=== PATIENT | male | born 1950 | race Caucasian/White ===

== ENCOUNTER → 2017-09-12 | Outpatient (CLI) | payer MEDICARE, OTHER ==
[~2017-09-12] MED LIST: BUPIVACAINE MPF 0.25% 10 ML VIAL. ONE; DEXAMETHASONE SOD PHOS 4 MG/ML VIAL ONE; IOHEXOL 300 MG/ML 50 ML VIAL. ONE; LIDOCAINE 1% PF 30 ML VIAL. ONE
== END | disposition home or self-care (01) ==
LOC: SURG 12:08
PROVIDERS: ATTEND Anesthesiology
DX: M54.16 Radiculopathy, lumbar region (principal); M19.91 Primary osteoarthritis, unspecified site; N42.9 Disorder of prostate, unspecified; Z72.89 Other problems related to lifestyle; Z85.46 Personal history of malignant neoplasm of prostate; Z88.8 Allergy status to other drugs, medicaments and biological substances
CPT/HCPCS: 64483; J1100; J2001; J3490; Q9967; 64484

== ENCOUNTER → 2020-07-16 | Outpatient (CLI) | payer MEDICARE, OTHER ==
--- NOTE | 2020-07-16 17:25 | RAD ---
CHEST PA LATERAL History: Shortness of air Comparison: None. Findings: 2 views of the chest are submitted. There is no infiltrate, pneumothorax, or effusion. Pericardial cardiac silhouette is within normal limits in size. There is somewhat tortuous thoracic aorta. Impression: 1. No significant infiltrate is identified by radiographs. Electronically signed by: Olayinka Cavazos MD (07/16/2020 5:23 PM) [id number]
== END | disposition home or self-care (01) ==
LOC: DXRAD 16:33
PROVIDERS: ATTEND Physician Assistant
DX: R06.02 Shortness of breath (principal); Q25.46 Tortuous aortic arch
CPT/HCPCS: 71046

== ENCOUNTER → 2020-07-21 | Outpatient (CLI) | payer MEDICARE, OTHER ==
[~2020-07-21] MED LIST changes: -BUPIVACAINE MPF 0.25% 10 ML VIAL. ONE; -DEXAMETHASONE SOD PHOS 4 MG/ML VIAL ONE; -IOHEXOL 300 MG/ML 50 ML VIAL. ONE; +IOHEXOL 350 MG/ML 100 ML VIAL. IV ONE; -LIDOCAINE 1% PF 30 ML VIAL. ONE
--- NOTE | 2020-07-21 14:12 | RAD ---
Examination: CT angiography chest HISTORY: History of shortness of breath COMPARISON: None available TECHNIQUE: Axial CT angiographic images were performed with IV contrast. Coronal and sagittal 3-D reformats are performed Exposure: One or more of the following individualized dose reduction techniques were utilized for this examination: 1. Automated exposure control 2. Adjustment of the mA and/or kV according to patient size 3. Use of iterative reconstruction technique FINDINGS: The central airways are patent. Coronary artery calcifications identified. The caliber of the aorta grossly appears unremarkable. There is no evidence of filling defect identified in the main pulmonary arterial trunk and right and left main pulmonary arteries and the visualized lobar, segmental branches of the pulmonary arteries. Minimal bibasilar lung atelectasis or infiltrates. The visualized liver demonstrates small subcentimeter cystic structures in the right lobe, difficult to characterize. Mild degenerative changes thoracic spine. IMPRESSION: 1. No evidence of pulmonary embolism. 2. Coronary artery calcifications. 3. Mild bibasilar lung atelectasis or infiltrates. Electronically signed by: Juan Gonzales MD (07/21/2020 2:09 PM) [id number]
== END | disposition home or self-care (01) ==
LOC: CT 12:51
PROVIDERS: ATTEND Specialist
DX: R06.02 Shortness of breath (principal); I25.10 Atherosclerotic heart disease of native coronary artery without angina pectoris
CPT/HCPCS: 71275; Q9967

== ENCOUNTER → 2021-06-29 | Outpatient (CLI) | payer MEDICARE, OTHER ==
--- NOTE | 2021-06-30 09:48 | RAD ---
XR LUMBAR SPINE 2-3V 06/30/2021 9:41 AM Reason: CHRONIC LOW BACK PAIN Comparison: None Technique: AP and lateral radius the lumbar spine Findings: There are 5 nonrib-bearing vertebral bodies of the lumbar spine. Vertebral body heights are preserved . There is levoconvex curvature on this nonweightbearing study. There are postsurgical laminectomy ch anges of the mid lumbar levels. There are degenerative changes of the facet joints. Disc space narrow ing is seen throughout the spine greatest at the L2-3, L4-5, L5-S1 levels. Calcifications along the l eft aspect of the spine likely vascular in nature. Impression: 1. Postsurgical changes of laminectomy. 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 2. Degenerative disc and spinal disease. Electronically signed by: Sherif Weems (06/30/2021 9:46 AM) [id number]
== END ==
LOC: RAD 13:13
PROVIDERS: ATTEND Specialist
DX: M51.36 Other intervertebral disc degeneration, lumbar region (principal); M43.8X6 Other specified deforming dorsopathies, lumbar region
CPT/HCPCS: 72100